=== PATIENT | female | born 1985 | race Two or more races ===

== ENCOUNTER 2017-09-10 06:01 | Emergency (ER) | payer OTHER ==
[~2017-09-10] VITALS: Ht 162.6 cm; Wt 74.8 kg
--- OUTSIDE RECORDS SUMMARY | 2017-09-10 06:03 | XMS REPORT | Clinical Summary ---
Author Author [facility] Organization [facility] Address Unknown Phone Unavailable Care Team Providers Care Sales Development Representative Name Role Phone Yamil Champion MD PCP Allergies Active Allergy Reactions Severity Noted Date Comments Aspirin 10/02/2016 Doxycycline 10/02/2016 Ibuprofen 10/02/2016 Iodine 10/02/2016 Current Medications Prescription Sig. Disp. Refills Start End Date Status Date ACETAMINOPHEN (TYLENOL Take by mouth as needed. Active ORAL) montelukast (SINGULAIR) Take 1 tablet (10 mg 90 tablet 1 04/29/20 Active 10 mg tabletIndications: total) by mouth nightly. 17 18 Chronic seasonal allergic rhinitis, unspecified trigger ergocalciferol (VITAMIN Take 1 capsule (50,000 12 capsule 0 04/29/20 04/29/20 Active D2) 50,000 unit Units total) by mouth 17 18 capsuleIndications: once a week. Vitamin D deficiency levothyroxine (SYNTHROID, Take 1 tablet (50 mcg 90 tablet 1 07/16/19 Active LEVOXYL) 50 mcg total) by mouth daily. 18 tabletIndications: Hypothyroidism, unspecified type levothyroxine (SYNTHROID, TK 1 T PO D 0 08/30/19 03/29/20 Discontin LEVOXYL) 50 mcg tablet 17 17 ued oxymetazoline (AFRIN, 2 sprays into each 1.5 mL 0 10/03/19 10/06/19 OXYMETAZOLINE,) 0.05 % nostril 2 (two) times a 17 17 nasal spray day for 3 days. desogestrel-ethinyl Take 1 tablet by mouth 28 tablet 1 11/10/19 Discontin estradiol (APRI) daily. 17 17 ued 0.15-0.03 mg per tablet traMADol-acetaminophen Take 1 tablet by mouth 30 tablet 0 11/10/19 11/20/19 (ULTRACET) 37.5-325 mg every 6 (six) hours as 17 17 per tablet needed for moderate pain for up to 10 days. montelukast (SINGULAIR) Take 1 tablet (10 mg 30 tablet 2 03/28/20 Discontin 10 mg tabletIndications: total) by mouth nightly. 17 17 ued Allergic rhinitis, unspecified allergic rhinitis trigger, unspecified rhinitis seasonality levothyroxine (SYNTHROID, TK 1 T PO D 90 tablet 3 03/29/20 04/29/20 Discontin LEVOXYL) 50 mcg 17 17 ued tabletIndications: Hypothyroidism, unspecified type levothyroxine (SYNTHROID, TK 1 T PO D 90 tablet 1 04/29/20 07/16/19 Discontin LEVOXYL) 50 mcg 17 18 ued tabletIndications: Hypothyroidism, unspecified type Active Problems Not on file Encounters Date Type Specialty Care Team Description 07/16/2017 Orders Only Internal Medicine Abby Corbett MA Hypothyroidism, unspecified type 05/03/2017 Lab Lab Yehuda Champion MD 05/03/2017 [facility] Radiology Yehuda Champion MD Breast mass Encounter 05/03/2017 Hospital Radiology Yehuda Champion MD Breast mass Encounter 05/03/2017 Ancillary Access Yehuda Champion MD Breast mass Orders 04/29/2017 Office Visit Internal Medicine Yehuda Champion MD Hypothyroidism, unspecified type (Primary Dx); Chronic seasonal allergic rhinitis, unspecified trigger; Vitamin D deficiency; Acute left ankle pain 04/29/2017 Emergency Emergency Medicine Felipa Alejandre, Raynaud's phenomenon MD without gangrene (Primary Dx); Hyperventilation syndrome; Anxiety attack; Hypokalemia 04/23/2017 Orders Only Internal Medicine Yehuda Champion MD Left breast mass (Primary Dx) 04/22/2017 Transcribe Access Yehuda Champion MD Breast mass ( Primary Dx) Orders 04/19/2017 Telephone Radiology Sigifredo Adams RN 04/18/2017 Hospital Radiology Yehuda Champion MD Left breast mass Encounter 04/18/2017 Hospital Radiology Yehuda Champion MD Left breast mass Encounter 04/18/2017 Ancillary Internal Medicine Yehuda Champion MD Left breast mass Orders 04/10/2017 Telephone Obstetrics and Gynecology Wendi Foote MD 03/29/2017 Orders Only Internal Medicine Abby Corbett MA Hypothyroidism, unspecified type 03/29/2017 Orders Only Internal Medicine Yehuda Champion MD Hypothyroidism, unspecified type (Primary Dx) 03/28/2017 Lab Lab Yehuda Champion MD Routine general medical examination at a health care facility; Screening for cardiovascular condition; Screening for diabetes mellitus; Hypothyroidism, unspecified type 03/28/2017 Office Visit Internal Medicine Yehuda Champion MD Routine general medical examination at a health care facility (Primary Dx); Screening for cardiovascular condition; Screening for diabetes mellitus; Screening for cervical cancer; Overweight (BMI 25.0-29.9); Left breast mass; Hypothyroidism, unspecified type; Allergic rhinitis, unspecified allergic rhinitis trigger, unspecified rhinitis seasonality; Acute pain of left knee; Chronic nonintractable headache, unspecified headache type 11/09/2016 Office Visit Family Medicine Shellie Gusman NP Dysmenorrhea (Primary Dx); Dyspareunia in female 10/02/2016 Emergency Emergency Medicine Seth North, Viral URI (Primary Dx) DO after 09/09/2016 Family History Medical History Relation Name Comments No Known Problems Father Thyroid disease Mother Relation Name Status Comments Father Alive Mother Alive Social History Tobacco Use Types Packs/Day Years Used Date Never Smoker Alcohol Use Drinks/Week oz/Week Comments No Sex Assigned at Date Recorded Not on file Last Filed Vital Signs Vital Sign Reading Time Taken Blood Pressure 133/73 04/29/2017 3:21 PM CDT Pulse 93 04/29/2017 3:21 PM CDT Temperature 35.9 C (96.6 F) 04/29/2017 4:27 AM CDT Respiratory Rate 18 04/29/2017 4:27 AM CDT Oxygen Saturation 100% 04/29/2017 4:27 AM CDT Inhaled Oxygen - - Concentration Weight 67.6 kg (149 lb) 04/29/2017 3:21 PM CDT Height 170.2 cm (5' 7") 04/29/2017 3:21 PM CDT Body Mass Index 23.34 04/29/2017 3:21 PM CDT Plan of Treatment Health Maintenance Due Date Last Done Comments PAP SMEAR 2004 INFLUENZA VACCINE 02/05/2017 Results * Surgical pathology request (05/03/2017 2:28 PM) Component Value Ref Range Surgical pathology report See link below for PDF Lab Report Specimen Performing Laboratory [facility] DEPARTMENT OF PATHOLOGY AND GENOMIC MEDICINE [address] [place] [id number] * Mammo Diagnostic w Cad Left (05/03/2017 11:48 AM) Only the most recent of 2 results within the time period is included. Specimen Performing Laboratory [facility] [address] [place] [address] Addenda Addendum by Hussain Whitmore Jr., MD on 05/09/2017 9:10 AM ADDENDUM #1 Addendum report for pathology. 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 Reporting pathologist Dr. Rosalee Rodriguez M.D. 05/06/2017. IMPRESSION: BI-RADS Category 3 probably benign findings. Fibroadenoma. Recommendation 6 month ultrasound follow-up recommended. Narrative PROCEDURE: US BREAST BIOPSY LEFT, MAMMO DIAGNOSTIC W CAD LEFT Palpable lesion left breast. After informed consent and timeout procedure the palpable area in the left breast that measured 1.25 x 0.45 x 1.08 cm was identified and marked. This appears to be a lobulated hypoechoic mass suggestive of a fibroadenoma. After informed consent 14-gauge needle was utilized for biopsy of the superficial mass. Several cores were obtained a small clip was placed. No complications. Left diagnostic mammogram for clip placement shows the small clip in place in the periareolar left breast. IMPRESSION:Successful ultrasound-guided core biopsy and clip placement. RECOMMENDATION: Await histopathology. BI-RADS 0, incomplete. Awaiting histopathology report. [id number] * US Breast Biopsy Left (05/03/2017 11:38 AM) Specimen Performing Laboratory [facility] [address] [place] [address] Addenda Addendum by Hussain Whitmore Jr., MD on 05/09/2017 9:10 AM ADDENDUM #1 Addendum report for pathology. 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 Reporting pathologist Dr. Rosalee Rodriguez M.D. 05/06/2017. IMPRESSION: BI-RADS Category 3 probably benign findings. Fibroadenoma. Recommendation 6 month ultrasound follow-up recommended. Narrative PROCEDURE: US BREAST BIOPSY LEFT, MAMMO DIAGNOSTIC W CAD LEFT Palpable lesion left breast. After informed consent and timeout procedure the palpable area in the left breast that measured 1.25 x 0.45 x 1.08 cm was identified and marked. This appears to be a lobulated hypoechoic mass suggestive of a fibroadenoma. After informed consent 14-gauge needle was utilized for biopsy of the superficial mass. Several cores were obtained a small clip was placed. No complications. Left diagnostic mammogram for clip placement shows the small clip in place in the periareolar left breast. IMPRESSION:Successful ultrasound-guided core biopsy and clip placement. RECOMMENDATION: Await histopathology. BI-RADS 0, incomplete. Awaiting histopathology report. [id number] * Estimated GFR (04/29/2017 3:52 AM) Only the most recent of 2 results within the time period is included. Component Value Ref Range GFR Non Af Amer >90 mL/min/1.73 m2 GFR Af Amer >90 mL/min/1.73 m2 Comment: Chronic kidney disease: <60 mL/min/1.73m2 Kidney failure: <15 mL/min/1.73m2 The estimated GFR is calculated from the IDMS-traceable Modification of Diet in Renal Disease Equation. The accuracy of the calculation is poor when the creatinine is normal. Calculated values >90 mL/min/1.73m2 are not reported. This equation has not been validated in children (<18 years), women, the elderly (>70 years), or ethnic groups other than Caucasians and Americans. Specimen Performing Laboratory Plasma specimen DEPARTMENT OF PATHOLOGY AND GENOMIC MEDICINE, [address] [place] [address] * CBC with platelet and differential (04/29/2017 3:52 AM) Only the most recent of 2 results within the time period is included. Component Value Ref Range WBC 9.12 4.50 - 11.00 k/uL RBC 4.30 4.20 - 5.50 m/uL HGB 11.6 (L) 12.0 - 16.0 g/dL HCT 35.6 (L) 37.0 - 47.0 % MCV 82.8 82.0 - 100.0 fL MCH 27.0 27.0 - 34.0 pg MCHC 32.6 31.0 - 37.0 g/dL RDW - SD 40.7 37.0 - 55.0 fL MPV 10.4 8.8 - 13.2 fL Platelet count 247 150 - 400 k/uL Neutrophils 59.4 39.0 - 69.0 % Lymphocytes 29.5 25.0 - 45.0 % Monocytes 6.1 0.0 - 10.0 % Eosinophils 4.5 0.0 - 5.0 % Basophils 0.5 0.0 - 1.0 % Specimen Performing Laboratory Blood [facility] OF [facility]OLOGY [facility]ICINE[address] [address] * Comprehensive metabolic panel (04/29/2017 3:52 AM) Only the most recent of 2 results within the time period is included. Component Value Ref Range Sodium 138 128 - 145 mEq/L Potassium 3.5 (L) 3.6 - 5.1 mEq/L CO2 27 18 - 33 mEq/L Chloride 104 98 - 108 mEq/L Glucose 106 73 - 118 mg/dL Calcium 9.0 8.0 - 10.3 mg/dL BUN 8 7 - 22 mg/dL Creatinine 0.7 0.6 - 1.2 mg/dL Alkaline phosphatase 73 42 - 141 U/L ALT 19 10 - 47 U/L AST 19 11 - 38 U/L Total bilirubin 0.4 0.2 - 1.6 mg/dL Albumin 3.3 3.3 - 5.5 g/dL Protein 7.0 6.4 - 8.1 g/dL Anion gap 7 7 - 15 mEq/L Comment: Starting from October , anion gap calculation no longer incorporates potassium. Please note the change. A/G ratio 0.9 0.7 - 3.8 Specimen Performing Laboratory Plasma specimen [facility]PARTMENT OF PATHOLOGY AND GENOMIC MEDICINE[address] [address] * US Breast Complete Left (04/18/2017 2:43 PM) Specimen Performing Laboratory [facility] [address] [place] [id number] Narrative EXAMINATION:MAMMO DIAGNOSTIC W CAD LEFT, US BREAST COMPLETE LEFT INDICATION:N 63.20. 31-year-old with unspecified lump in left breast. Palpable mass. COMPARISON:None available. FINDINGS: The left breast is heterogeneously dense which, may obscure small masses. There is no suspicious mass, distortion, asymmetry, or suspicious microcalcifications.There is a suggestion of a isodense circumscribed roughly 1 cm mass near the BB marker on the left breast at overlies the palpable abnormality. No abnormal calcification. Left whole breast sonography was performed by both the mechanical systems control engineer and myself. This included sonographic evaluation of all 4 quadrants as well as the subareolar region.Solid hypoechoic lobulated mass is seen under the palpable marker in the lateral aspect of the periareolar edge. This is fairly superficial at anterior depth. Measurements are 1.06 x 1.25 x 0.45 cm. No other masses seen on the left breast. IMPRESSION:Probable fibroadenoma. RECOMMENDATION: Recommend ultrasound-guided biopsy. BI-RADS 4: SUSPICIOUS. [id number] * Hemoglobin A1c (03/28/2017 1:45 PM) Component Value Ref Range Hemoglobin A1C 5.5 4.0 - 5.6 % Comment: HbA1c cutoffs for diagnosing diabetes: 4.0% - 5.6%=normal 5.7% - 6.4%=increased risk for diabetes (prediabetes) >=6.5%=diabetes Goals for glycemic control (ADA 2016) < 7.0% Target for non adults with diabetes. More or less stringent targets may be appropriate for individual patients. <7.5% Target for Children and adolescents with type 1 diabetes. Specimen Performing Laboratory Blood [facility] DEPARTMENT OF PATHOLOGY AND GENOMIC MEDICINE [address] [place] [address] * Thyroperoxidase antibody (03/28/2017 12:34 PM) Component Value Ref Range Thyroperoxidase Ab 0.3 0.0 - 9.0 IU/mL Specimen Performing Laboratory Serum [facility] DEPARTMENT OF PATHOLOGY AND GENOMIC MEDICINE [address] [place] [address] * Vitamin D 25 hydroxy level (03/28/2017 12:34 PM) Component Value Ref Range Vitamin D, 25-hydroxy 15.1 (L) 30.0 - 150.0 ng/mL Comment: This assay reports the sum of 25-hydroxy vitamin D3 and 25-hydroxy vitamin D2. Reference range: 0-17 years: Deficiency: less than 20ng/mL Optimum level: greater than or equal to 20 ng/mL. 18 years and older: Deficiency: less than 20ng/mL Insufficiency: 20-29 ng/mL Optimum Level: 30-80 ng/mL The assay reportable range is 3.4 155.9 ng/mL. Levels higher than 150 ng/mL may be associated with toxicity. If toxicity is clinically suspected and the reported result is >155.9 ng/mL,contact lab for alternative methods to obtain a definitive level. If separate quantitation of 25-hydroxy vitamin D3 and 25-hydroxy vitamin D2 is needed, please contact lab for alternative methods. Specimen Performing Laboratory Blood [facility] DEPARTMENT OF PATHOLOGY AND [facility] MEDICINE [address] [place] [address] * Thyroid stimulating hormone (03/28/2017 12:34 PM) Component Value Ref Range TSH 1.72 0.27 - 4.20 uIU/mL Specimen Performing Laboratory Plasma specimen [facility] DEPARTMENT OF PATHOLOGY AND [address] [address] * T4, free (03/28/2017 12:34 PM) Component Value Ref Range T4, free 1.2 0.9 - 1.7 ng/dL Specimen Performing Laboratory Plasma specimen [facility] DEPARTMENT OF PATHOLOGY AND [facility] MEDICINE [address] [place] [address] * Vitamin B12 level (03/28/2017 12:34 PM) Component Value Ref Range Vitamin B12 449 211 - 946 pg/mL Comment: Significant overlap exists between normal and deficiency states. However, most patients with deficiencies will have Serum B12 <200 pg/mL. Specimen Performing Laboratory Serum [facility] DEPARTMENT OF PATHOLOGY AND [facility] MEDICINE [address] [place] [address] * Lipid panel (03/28/2017 12:34 PM) Component Value Ref Range Cholesterol 162 <200 mg/dL Triglycerides 101 <150 mg/dL HDL cholesterol 46 >40 mg/dL LDL cholesterol 101 (H)Comment: Result obtained by direct LDL <100 mg/dL measurement Lipid panel SeeBelow interpretation Comment: Total Cholesterol (mg/dL) <200 Desirable 200-239 Borderline-high >=240 High Triglycerides (mg/dL) <150 Normal 150-199 Borderline-high 200-499 High >=500 Very high HDL Cholesterol (mg/dL) <40 Low (male) <40 Low (female) LDL Cholesterol (mg/dL) <100 Optimal 100-129 Near or above optimal 130-159 Borderline-high 160-189 High >=190 Very high Risk Catergories that modify LDL goals. Risk Catergories LDL goal (mg/dL) CHD and CHD risk equivalent <100 (10-year risk >20%) Multiple (2+) risk factors <130 (10-year risk=<20%) 0-1 risk factors <160 (<10-year risk) Defining levels of lipids in metabolic syndrome Triglycerides >=150 mg/dL HDL Cholesterol Men <40 mg/dL Women <40 mg/dL Non-HDL cholesterol is a second target for therapy in persons with high triglycerides (>=200 mg/dL) Specimen Performing Laboratory Plasma specimen [facility] DEPARTMENT OF PATHOLOGY AND GENOMIC MEDICINE [address] [place] [address] * POC urinalysis dipstick (11/09/2016 4:50 PM) Component Value Ref Range Color urine, POC Yellow Clarity urine, POC Clear Glucose urine, POC Negative Negative Bilirubin urine, POC Negative Negative Ketones urine, POC Negative Negative Specific gravity urine, 1.015 1.005 - 1.030 POC Blood urine, POC Trace (A) Negative pH urine, POC 7.0 5.0, 5.5, 6.0, 6.5, 7.0, 7.5, 8.0, 8.5 Protein urine, POC Negative Negative Urobilinogen urine, POC <2.0 <2.0 Nitrite urine, POC Negative Negative Leukocyte esterase urine, Negative Negative POC Specimen Performing Laboratory Urine * POC , urine (11/09/2016 4:48 PM) Component Value Ref Range test urine, POC Negative QC done Yes Specimen Performing Laboratory Urine * Influenza antigen (10/02/2016 5:07 PM) Component Value Ref Range Influenza antigen Negative for Influenza A/B antigen. Comment: Specimen Information Specimen Source: [place] Specimen Site: Not specified Specimen Performing Laboratory Nares - Not specified DEPARTMENT OF PATHOLOGY AND GENOMIC MEDICINE, [address] [address] after 09/09/2016 Insurance Payer Benefit Subscriber ID Type Phone Address Plan / Group [facility] xxxxxxx PPO [employer] STDT RES [place]A [place] Third Self 1985 Home: [place] [facility] [place] [id number] Liability
[2017-09-10] MEDS ORDERED: KETOROLAC TROMETHAMINE 30 MG/ML VIAL IV ONE (07:45)
[2017-09-10] MEDS ORDERED: DULCOLAX STOOL100 MG PO (08:57)
[2017-09-10 09:12] VITALS: BP 110/70
== END 2017-09-10 09:05 | disposition home or self-care (01) ==
LOC: FSED 06:01
DX: R10.30 Lower abdominal pain, unspecified (principal); K59.00 Constipation, unspecified
CPT/HCPCS: 80053; 81003; 85025; 99283; J1885